=== PATIENT | female | born 1995 | race Caucasian/White ===

== ENCOUNTER 2017-08-09 14:08 | Emergency (ER) | END 2017-08-09 15:13 | disposition left against medical advice (07) | LOC: UCCORT 14:08 | DX: R05 Cough (principal); Z53.20 Procedure and treatment not carried out because of patient's decision for unspecified reasons ==

== ENCOUNTER 2017-08-12 07:02 | Emergency (ER) | payer BC ==
[2017-08-12 07:21] VITALS: BP 129/70
--- NOTE | 2017-08-12 07:40 | ED ---
Throat Pain/Nasal Congestion - HPI Summary HPI Summary: 21 yr old with 5 days of URI symptoms, coughing and progressive left ear pain. Pain moderate. She has associated bilateral eye irritation, right more than left with some crusty drainage in AM the past few days as well. she does not wear contact lenses. - History of Current Complaint Chief Complaint: UCGeneralIllness Time Seen by Provider: 08/12/17 07:34 - Allergies/Home Medications Allergies/Adverse Reactions: Allergies Allergy/AdvReac Type Severity Reaction Status Date / Time amoxicillin [From Augmentin] Allergy Vomiting Verified 08/12/17 07:17 clavulanic acid Allergy Vomiting Verified 08/12/17 07:17 [From Augmentin] Home Medications: Home Medications Oral Contraceptive 1 tab PO DAILY 08/12/17 [History] Spironolactone TAB* [Aldactone TAB*] 25 mg PO DAILY 08/12/17 [History Confirmed 08/12/17] PMH/Surg Hx/FS Hx/Imm Hx Previously Healthy: Yes - Surgical History Surgery Procedure, Year, and Place: tonsillectomy Infectious Disease History: No Infectious Disease History: Denies: Traveled Outside the [place] in Last 30 Days - Family History Known Family History: Positive: None - Social History Alcohol Use: None Substance Use Type: Reports: None Smoking Status (MU): Never Smoked Tobacco Review of Systems Constitutional: Negative Positive: Drainage Positive: Ear Ache Positive: Cough All Other Systems Reviewed And Are Negative: Yes Physical Exam Triage Information Reviewed: Yes Vital Signs On Initial Exam: Initial Vitals Temp Pulse Resp BP Pulse Ox 98.1 F 85 16 129/70 98 08/12/17 07:12 08/12/17 07:12 08/12/17 07:12 08/12/17 07:12 08/12/17 07:12 Vital Signs Reviewed: Yes Appearance: Positive: Well-Appearing, No Pain Distress Skin: Positive: Warm, Skin Color Reflects Adequate Perfusion Head/Face: Positive: Normal Head/Face Inspection Eyes: Positive: EOMI, Conjunctiva Inflammed ENT: Positive: Pharynx normal, Nasal congestion, TM red - left Neck: Positive: Nontender Respiratory/Lung Sounds: Positive: Clear to Auscultation, Breath Sounds Present Cardiovascular: Positive: RRR. Negative: Murmur Abdomen Description: Positive: Nontender Musculoskeletal: Positive: Strength/ROM Intact Neurological: Positive: Sensory/Motor Intact, Alert, Oriented to Person Place, Time, CN Intact II-III Psychiatric: Positive: Normal - Bea Coma Scale Best Eye Response: 4 - Spontaneous Best Motor Response: 6 - Obeys Commands Best Verbal Response: 5 - Oriented Coma Scale Total: 15 Diagnostics - Vital Signs Vital Signs Temp Pulse Resp BP Pulse Ox 08/12/17 07:12 98.1 F 85 16 129/70 98 - Laboratory Lab Statement: Any lab studies that have been ordered have been reviewed, and results considered in the medical decision making process. EENT Course/Dx - Course Course Of Treatment: 21 yr old with conjunctivitis, and also otitis media. Rx zpack and sulfa drops. - Diagnoses Provider Diagnoses: Otitis media, Conjunctivitis Discharge - Discharge Plan Condition: Good Disposition: HOME Prescriptions: Azithromycin TAB* [Zithromax TAB (Z-KELLY) 250 mg #6 tabs] 2 tab PO .TODAY, THEN 1 DAILY #1 kelly Sulfacetamide 10 % OPTH.ALBINA* [Sulamyd 10% Opth*] 1 drop BOTH EYES Q4H #1 btl Patient Education Materials: Ear Infection (ED), Conjunctivitis (ED) Referrals: No Primary Care Phys,NOPCP [Primary Care Provider] - [facility] [Outside]
== END 2017-08-12 07:46 | disposition home or self-care (01) ==
LOC: UCCORT 07:02
DX: H66.92 Otitis media, unspecified, left ear (principal); H10.33 Unspecified acute conjunctivitis, bilateral; R05 Cough; Z88.1 Allergy status to other antibiotic agents
CPT/HCPCS: 99202; G0463